=== PATIENT | male | born 1940 | race Caucasian/White ===

== ENCOUNTER 2017-06-02 18:00 | Emergency (ER) | payer MEDICARE, OTHER ==
[~2017-06-02] VITALS: Ht 182.9 cm; Wt 96.2 kg
[~2017-06-02 18:00] MED LIST: ALLEGRA ALLERG180 MG PO; ASPIRIN EC81 MG PO; B COMPLETE1 EACH PO; FERROUS SULFAT325 MG PO; FLOMAX0.4 MG PO; FLONASE ALLERG9.9 ML NS; HYDROCODON-ACE1 EA11 PO; LISINOPRIL-HCT1 EACH PO; MAGNESIUM400 M1 PO; METOPROLOL SUCC25 MG PO; MIRALAX17 GM PO; MULTIVITAMINS1 EAC7 PO; OXYCODONE HCL5 MG PO; SIMVASTATIN80 MG PO; VITAMIN D-32000 UNI1 PO; XARELTO10 MG PO
[2017-06-02] MEDS ORDERED: MIRTAZAPINE15 MG PO (18:21)
== END 2017-06-02 19:32 | disposition home or self-care (01) ==
LOC: ED 18:00
PROC: 0HQFXZZ Repair Right Hand Skin, External Approach (ICD-10-PCS; principal; 2017-06-02)
DX: S61.210A Laceration without foreign body of right index finger without damage to nail, initial encounter (principal); I10 Essential (primary) hypertension; E03.9 Hypothyroidism, unspecified; W26.0XXA Contact with knife, initial encounter
CPT/HCPCS: 12001; 90471; 90714; 99282

== ENCOUNTER 2018-08-19 06:25 | Day surgery (SDC) | payer MEDICARE, OTHER ==
[~2018-08-19] VITALS: Ht 182.9 cm; Wt 93.4 kg
[~2018-08-19 06:25] MED LIST changes: +MIRTAZAPINE15 MG PO
[2018-08-19] MEDS ORDERED: FLUOXETINE HCL20 MG PO (06:46)
[2018-08-19] MEDS ORDERED: LISINOPRIL-HCT1 EACH PO (06:47)
--- NOTE | 2018-08-19 09:00 | NUR ---
08/19/18 0900 Antonella Saldana 0850- PT ARRIVES TO PACU WITH EYES OPEN. PT REPORTS NO PAIN OR NAUSEA. PT ON 3L VIA NC. OXYGEN SAT HIGH 90'S TO 100% ON RA. RESP EVEN AND UNLABORED. 0852- OXYGEN TURNED OFF. OXYGEN SAT MID 90'S ON RA. RESP EVEN AND UNLABORED. PT PASSING FLATUS. 0857- PT CONTINUES TO PASS FLATUS. 0859- PT SITTING UP IN BED. REPORTS NO DIZZINESS, NAUSEA, OR PAIN. PT DRINKING CRANBERRY JUICE. TOLERATING WELL.
--- NOTE | 2018-08-19 09:17 | NUR ---
PT ALERT, ORIENTED AND SUPPORTED BY HIS . PREVIOUS SCOPES, SEEMED PREPARED BUT DID NOT HAVE A PAGER. DAQUAN BROUGHT ONE IN FOR PT'S . PT REQUESTED PRAYER, WILL FOLLOW NEEDED
--- NOTE | 2018-08-21 19:22 | OR ---
[facility] [address], [place] [address] Signed DATE OF OPERATION: 08/19/2018 SURGEON: Kunal Sandy MD PREOPERATIVE DIAGNOSIS: History of polyps including dysplastic cecal polyp (last colonoscopy in 2012). POSTOPERATIVE DIAGNOSES: 1. Sigmoid diverticulosis. 2. Polyps x3. PROCEDURES: 1. Total colonoscopy to cecum. 2. Snare polypectomy of the midtransverse colon polyp with mucosal lift technique and Endomark tattoo dye. 3. Snare polypectomy of polyp at 50 cm. 4. Cold morcellation polypectomy, sigmoid polyp. ANESTHESIA: Intravenous sedation with fentanyl 100 mcg and versed 4 mg. INDICATION: A 78-year-old white man who is a patient of Dr. Camarillo and underwent colonoscopy by me in the past. His last colonoscopy was in 2012. In the past, he has had several polyps excised. At one point, he had a dysplastic cecal polyp excised. He is symptom free currently. He is here for surveillance colonoscopy. FINDINGS: The prep was excellent. Complete colonoscopy was undertaken of the cecum. There were numerous diverticula of the sigmoid and left colon. There were three polyps in total, one in the transverse, another at 50 cm, another in the sigmoid, all excised. DESCRIPTION OF PROCEDURE: The patient was brought to the endoscopy suite and placed in lateral decubitus position given intravenous sedation to the point of slurred speech and nystagmus. Digital rectal examination was normal. An Olympus video colonoscope was passed in the rectum and manipulated throughout the colon ultimately intubating the cecum itself. The ileocecal valve and appendiceal orifice were normal. Scope was withdrawn from that point and examination undertaken in Electronically Signed By: KUNAL SANDY MD 08/21/18 192 PATIENT NAME: KAYLAN GAMBINO OPERATIVE REPORT DATE OF : 42 REPORT #: [id number] PHYSICIAN: KUNAL SANDY MD PCP: AVIVA CAMARILLO MD REPORT IS CONFIDENTIAL AND NOT TO BE RELEASED WITHOUT AUTHORIZATION [facility] [address], [place] [address] Signed the mid transverse colon was a somewhat flat and somewhat amorphous polyp. A mucosal lift technique was deemed most appropriate for excision. Using a sclerotherapy needle with spot Endomark tattoo dye, mucosal lift was undertaken using the hot snare polypectomy technique. The polyp was excised. The polyp was withdrawn through the channel of the scope and offloaded. The scope was then withdrawn and at 50 cm, there was noted another polyp, also somewhat sessile. It was excised with cold snare polypectomy technique without problem. It was extracted without problem as well. Further withdrawal of scope showed diverticula once again in the sigmoid and a small polyp, which was excised with cold morcellation technique. Further withdrawal showed no other abnormalities. Scope was removed and the patient was taken to recovery room in good condition. CONCLUDING DIAGNOSES: 1. Polyps x3. 2. Diverticulosis. PLAN: I would recommend repeat colonoscopy in 3 years given the polyps noted, sooner if he is having problems of course. He will return to the ongoing care of Dr. Camarillo. MD ALEX Gentile/RENATA /[id number] cc: Aviva Camarillo MD Copies: AVIVA CAMARILLO MD ~ Electronically Signed By: KUNAL SANDY MD 08/21/18 1922 PATIENT NAME: KAYLAN GAMBINO FRANK OPERATIVE REPORT DATE OF : 42 REPORT #: [id number] PHYSICIAN: KUNAL SANDY MD PCP: AVIVA CAMARILLO MD REPORT IS CONFIDENTIAL AND NOT TO BE RELEASED WITHOUT AUTHORIZATION
== END 2018-08-19 09:30 | disposition home or self-care (01) ==
LOC: OPS 06:25 → DS 06:25 → OPS 06:45 → DS 06:45 → OPS 09:30
PROVIDERS: Surgery
PROC: 0DBE8ZZ Excision of Large Intestine, Via Natural or Artificial Opening Endoscopic (ICD-10-PCS; 2018-08-19)
PROC: 0DBN8ZZ Excision of Sigmoid Colon, Via Natural or Artificial Opening Endoscopic (ICD-10-PCS; 2018-08-19)
PROC: 3E0H8GC Introduction of Other Therapeutic Substance into Lower GI, Via Natural or Artificial Opening Endoscopic (ICD-10-PCS; 2018-08-19)
PROC: 0DBL8ZZ Excision of Transverse Colon, Via Natural or Artificial Opening Endoscopic (ICD-10-PCS; principal; 2018-08-19 06:45)
DX: Z12.11 Encounter for screening for malignant neoplasm of colon (principal); D12.3 Benign neoplasm of transverse colon; D12.6 Benign neoplasm of colon, unspecified; K57.30 Diverticulosis of large intestine without perforation or abscess without bleeding; K63.5 Polyp of colon; I10 Essential (primary) hypertension; Z86.010 Personal history of colon polyps; Z88.1 Allergy status to other antibiotic agents; Z88.8 Allergy status to other drugs, medicaments and biological substances; Z98.890 Other specified postprocedural states
CPT/HCPCS: 88305; 99153; G0500; J0690; J2250; J3010; J7120

== ENCOUNTER 2022-03-22 20:01 | Emergency (ER) | payer MEDICARE, OTHER ==
[~2022-03-22] VITALS: Ht 182.9 cm; Wt 103.0 kg
[~2022-03-22 20:01] MED LIST changes: +FLUOXETINE HCL20 MG PO
== END 2022-03-22 20:55 | disposition home or self-care (01) ==
LOC: ED 20:01
DX: K40.90 Unilateral inguinal hernia, without obstruction or gangrene, not specified as recurrent (principal); I10 Essential (primary) hypertension; E78.5 Hyperlipidemia, unspecified; Z88.0 Allergy status to penicillin; Z88.8 Allergy status to other drugs, medicaments and biological substances; Z79.82 Long term (current) use of aspirin; Z79.899 Other long term (current) drug therapy
CPT/HCPCS: 99283

== ENCOUNTER 2023-09-29 08:49 | Emergency (ER) | payer MEDICARE, OTHER ==
[~2023-09-29] VITALS: Ht 182.9 cm; Wt 100.1 kg
[~2023-09-29 08:49] MED LIST changes: +ADVIL MIGRAINE200 MG PO; +MULTIPLE VITAM1 EAC1 PO; +PERCOCET 7.5-31 EACH PO; +TYLENOL EXTRA500 MG PO; +ZYRTEC10 M3 PO
--- OUTSIDE RECORDS SUMMARY | 2023-09-29 08:58 | XMS ---
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 E.Noah. VISIT COUNT (12 MO.) 3 Carlo Dawkins 1 [facility] 1 [facility] (Lianet Martini) TOTAL 5 NOTE: Visits indicate total known visits. ED/UCC VISIT TRACKING (12 MO.) 09/29/2023 08:49 JOSE Ariza TYPE: Emergency COMPLAINT: - COLD SYPMTOMS 09/22/2023 12:[address] 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 - Pain in right knee - Tinea cruris - Knee Swelling [facility]23 09[facility] TYPE: Emergency DIAGNOSES: - Poss infection in Knee 07/15/2023 04:53 Carlo Dawkins [facility] TYPE: Emergency DIAGNOSES: - Hemarthrosis, unspecified joint - r leg pain INPATIENT VISIT TRACKING (12 MO.) 07/15/2023 09:36 [facility] TYPE: Medical Surgical DIAGNOSES: - Pyogenic arthritis, unspecified - Poss infection in Knee [id number]
[2023-09-29] MEDS ORDERED: HYDROCORTISONE454 GM TOP (09:32)
[2023-09-29] MEDS ORDERED: NYSTATIN15 GM TOP (09:32)
[2023-09-29] MEDS ORDERED: FINASTERIDE5 MG PO (09:32)
[2023-09-29] MEDS ORDERED: KETOCONAZOLE15 GM TOP (09:32)
[2023-09-29] MEDS ORDERED: FLUCONAZOLE150 MG PO (09:32)
[2023-09-29] MEDS ORDERED: DOXYCYCLINE HYCLATE 100 MG CAP PO ONE (09:45)
[2023-09-29] MEDS ORDERED: DOXYCYCLINE HY100 MG PO (09:58)
[2023-09-29 10:05] VITALS: BP 138/72
== END 2023-09-29 10:10 | disposition home or self-care (01) ==
LOC: ED 08:49
DX: L03.211 Cellulitis of face (principal); L03.019 Cellulitis of unspecified finger; J32.9 Chronic sinusitis, unspecified; I10 Essential (primary) hypertension; E78.5 Hyperlipidemia, unspecified; Z88.8 Allergy status to other drugs, medicaments and biological substances; Z88.0 Allergy status to penicillin; Z88.1 Allergy status to other antibiotic agents; Z79.899 Other long term (current) drug therapy; Z79.82 Long term (current) use of aspirin; Z79.51 Long term (current) use of inhaled steroids

== ENCOUNTER 2024-11-16 07:48 | Emergency (ER) | payer MEDICARE ==
[~2024-11-16] VITALS: Ht 182.9 cm; Wt 109.7 kg
[~2024-11-16 07:48] MED LIST changes: +DOXYCYCLINE HY100 MG PO; +FINASTERIDE5 MG PO; +FLUCONAZOLE150 MG PO; +HYDROCORTISONE454 GM TOP; +KETOCONAZOLE15 GM TOP; +NYSTATIN15 GM TOP; +ONDANSETRON ODT8 MG PO
[2024-11-16 09:33] VITALS: BP 148/74
== END 2024-11-16 09:34 | disposition home or self-care (01) ==
LOC: ED 07:48
DX: K56.41 Fecal impaction (principal); I10 Essential (primary) hypertension; Z96.653 Presence of artificial knee joint, bilateral; Z88.0 Allergy status to penicillin; Z88.8 Allergy status to other drugs, medicaments and biological substances; Z79.899 Other long term (current) drug therapy; Z79.82 Long term (current) use of aspirin; Z98.890 Other specified postprocedural states
CPT/HCPCS: 99283

== ENCOUNTER 2024-11-19 08:02 | Emergency (ER) | payer OTHER ==
[~2024-11-19] VITALS: Ht 182.9 cm; Wt 105.0 kg
--- OUTSIDE RECORDS SUMMARY | 2024-11-19 08:08 | XMS ---
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 EMandeep VISIT COUNT (12 MO.) 3 [facility] TOTAL 3 NOTE: Visits indicate total known visits. ED/UCC VISIT TRACKING (12 MO.) 11/19/2024 08:02 JOSE Das [place] TYPE: Emergency COMPLAINT: - BLOOD IN URINE 11/16/2024 07:49 JOSE Das [place] TYPE: Emergency COMPLAINT: - CONSTIPATION DIAGNOSES: - Allergy status to other drugs, medicaments and biological substances - Allergy status to penicillin - Constipation, unspecified - Essential (primary) hypertension - Fecal impaction - exterminator termite (current) use of aspirin - Other exterminator termite (current) drug therapy - Other specified postprocedural states - Presence of artificial knee joint, bilateral 01/14/2024 19:27 JOSE Das [place] TYPE: Emergency COMPLAINT: - R ABD/BACK PAIN, VOMITING DIAGNOSES: - Allergy status to other drugs, medicaments and biological substances - Allergy status to penicillin - Essential (primary) hypertension - intermediate (current) use of aspirin - Meralgia paresthetica, right lower limb - Noninfective gastroenteritis and colitis, unspecified - Other penitentiary (current) drug therapy - Presence of artificial knee joint, bilateral - Unspecified abdominal pain INPATIENT VISIT TRACKING (12 MO.) 11/10/2024 09:50 [facility] TYPE: Orthopedic DIAGNOSES: - Infection and inflammatory reaction due to internal right knee prosthesis, subsequent encounter - Other postprocedural complications and disorders of genitourinary system - Other retention of urine [email or web address]
[2024-11-19] MEDS ORDERED: MIRTAZAPINE30 MG PO (08:20)
[2024-11-19 10:42] VITALS: BP 135/79
== END 2024-11-19 10:42 | disposition home or self-care (01) ==
LOC: ED 08:02
DX: T83.091A Other mechanical complication of indwelling urethral catheter, initial encounter (principal); I10 Essential (primary) hypertension; E78.5 Hyperlipidemia, unspecified; Z88.1 Allergy status to other antibiotic agents
CPT/HCPCS: 51798; 99283

== ENCOUNTER 2025-04-21 05:52 | Day surgery (SDC) | payer MEDICARE ==
[~2025-04-21] VITALS: Ht 177.8 cm; Wt 105.0 kg
[~2025-04-21 05:52] MED LIST changes: +ALLEGRA ALLERGY60 MG PO; +LACTATED RINGER'S 1,000 ML IV SCH; +MIRTAZAPINE30 MG PO
[2025-04-21 06:02] VITALS: BP 126/69
[2025-04-21] MEDS ORDERED: IBLOOD GLUCOSE TEST STRIP 1 EA TEST VI PRN (07:00)
[2025-04-21] MEDS ORDERED: LIDOCAINE HCL 1% 5 ML SDV INJ ONE (07:00)
[2025-04-21] MEDS ORDERED: CEFAZOLIN SODIUM 2 GM in SODIUM CHLORIDE 0.9% 100 ML IV SCH (07:00)
[2025-04-21] MEDS ORDERED: LIDOCAINE HCL 2% 5 ML SDV ONE (07:20)
--- NOTE | 2025-04-21 08:27 | NUR ---
04/21/[address] PRESENTS TO PATIENT'S BEDSIDE AND IS SPEAKING WITH HIM. HIS QUESTIONS ARE ANSWERED.
[2025-04-21 08:47] VITALS: BP 123/77
--- NOTE | 2025-04-21 11:41 | OR ---
[facility] [address] [place], [place] [address] Signed DATE OF OPERATION: 04/21/2025 SURGEON: Kunal Sandy MD PREOPERATIVE DIAGNOSIS: History of tubular adenomas x3, 2021. POSTOPERATIVE DIAGNOSES: 1. Multiple polyps including cecum and rectosigmoid. 2. Diverticulosis sigmoid. PROCEDURES: Total colonoscopy to cecum with cold snare polypectomy x2, cold morcellation polypectomy x3. ANESTHESIA: Intravenous sedation, propofol, Luzma Christine CRNA. INDICATION: This 84-year-old white man is patient of GOLDY Calixto and underwent colonoscopy by me in three years ago showing tubular adenomas x3. He has currently no symptoms of bleeding, diarrhea, or constipation and has no family history of colon cancer. He is here for surveillance colonoscopy. He understands risk of bleeding, infection, and perforation related to colonoscopy and wished to proceed. FINDINGS: The prep were adequate. Complete colonoscopy was undertaken of cecum with full intubation of the cecum. There was a less than 1 cm polyp in the cecum, which was excised with cold snare technique and three small polyps on the cecal fold at the junction of the cecum and ascending colon, which were excised with cold morcellation technique. Additionally, there was a polyp excised with snare technique at the rectosigmoid. There were diverticula in the sigmoid colon. DESCRIPTION OF PROCEDURE: The patient was brought to the endoscopy suite and placed in lateral decubitus position, given intravenous sedation to the point of slurred speech and nystagmus with full cardiopulmonary monitoring. Digital rectal examination was performed and found to be normal. An Olympus video colonoscope was passed in the rectum and manipulated throughout the Electronically Signed By: KUNAL SANDY MD 04/21/25 1141 PATIENT NAME: KAYLAN GAMBINO OPERATIVE REPORT DATE OF : 42 REPORT #: [id number] PHYSICIAN: KUNAL SANDY MD PCP: OLINDA PHILLIPS PAC REPORT IS CONFIDENTIAL AND NOT TO BE RELEASED WITHOUT AUTHORIZATION [facility] [address] [place], [place] [address] Signed colon. Irrigation was undertaken as required. Scope was ultimately advanced to the cecum. The ileocecal valve and appendiceal orifice were well identified. There was a small, slightly less than 1 cm, adenomatous appearing polyp, which was excised with cold snare technique and specimen passed in two pieces and labeled as cecal polyp #2. There was a series of small polyps on a cecal fold, which were excised with cold morcellation technique and a separate small polyp of the cecum excised with cold morcellation technique as well. The scope was withdrawn from that point and examination undertaken showed no sign of abnormality until the left colon where episodic diverticula were noted. At the rectosigmoid was a small sessile polyp excised with cold snare technique. This was passed for pathology as well. Retroflexed view of the rectum was normal. Scope was removed. The patient was taken to the recovery room in good condition. CONCLUDING DIAGNOSIS: Multiple polyps and diverticulosis. PLAN: Recommend repeat colonoscopy in 3 years. Recommend also a high-fiber diet based on diverticular changes. He will return to the ongoing care of GOLDY Calixto. MD ALEX Gentile/MODL /[id number] cc: Olinda Phillips PA-C Copies: ~ Electronically Signed By: KUNAL SANDY MD 04/21/25 1141 PATIENT NAME: KAYLAN GAMBINO OPERATIVE REPORT DATE OF : 42 REPORT #: [id number] PHYSICIAN: KUNAL SANDY MD PCP: OLINDA PHILLIPS PAC REPORT IS CONFIDENTIAL AND NOT TO BE RELEASED WITHOUT AUTHORIZATION
--- NOTE | 2025-04-23 12:48 | PATH ---
[facility] [address], [place] [address] Signed SPECIMEN(S): A CECUM POLYP SPECIMEN(S): B CECUM POLYP SPECIMEN(S): C CECUM POLYP SPECIMEN(S): D RECTAL POLYP SPECIMEN SOURCE: A. CECUM POLYP B. CECUM POLYP C. CECUM POLYP D. RECTAL POLYP CLINICAL HISTORY: History of colonic polyps. Postop-diverticulosis, multiple polyps. A-D) polyp FINAL PATHOLOGIC DIAGNOSIS: A. Cecum, polypectomy: - Tubular adenoma (multiple fragments). - Negative for high-grade dysplasia or malignancy. B. Cecum, polypectomy: - Tubular adenoma (multiple fragments). - Negative for high-grade dysplasia or malignancy. C. Cecum, polypectomy: - Tubular adenoma (multiple fragments). - Negative for high-grade dysplasia or malignancy. D. Rectum, polypectomy: - Tubular adenoma. - Negative for high-grade dysplasia or malignancy. DWS:smn MICROSCOPIC EXAMINATION: Histologic sections of all submitted blocks are examined by light microscopy. These findings, together with the gross examination, support the pathologic diagnosis. GROSS DESCRIPTION: A. The specimen, labeled and designated "Timothy, cecum polyp," is received in formalin and consists of five armstrong soft tissue fragments, ranging from 0.2-0.5 cm. Entirely submitted in (A1). B. The specimen, labeled and designated "Timothy, cecum polyp #2," is received in formalin and consists of three armstrong soft tissue fragments, ranging from 0.3-0.5 cm. Entirely submitted in (B1). PATIENT NAME: KAYLAN GAMBINO PATHOLOGY DATE OF : 42 REPORT #: [id number] PHYSICIAN: [facility] PCP: OLINDA PHILLIPS PAC REPORT IS CONFIDENTIAL AND NOT TO BE RELEASED WITHOUT AUTHORIZATION [facility] [address] [place], [place] [address] Signed C. The specimen, labeled and designated "Timothy, cecum polyp #3," is received in formalin and consists of eight armstrong soft tissue fragments, ranging from 0.2-0.3 cm. Entirely submitted in (C1). D. The specimen, labeled and designated "Timothy, rectal polyp," is received in formalin and consists of one armstrong soft tissue fragment, 0.4 cm. Entirely submitted in (D1). AB (under the direct supervision of a pathologist) The Gross Description was prepared using a voice recognition system. The report was reviewed for accuracy; however, sound-alike word errors, addition and/or deletions may occur. If there is any question about this report, please contact Client Services. PERFORMING LABORATORY: Technical component was performed by [facility], [address] [place] [id number] (CLIA# [id number]). Professional interpretation was performed by [facility], [address] [place] [id number] (CLIA#: [id number]). Diagnostician: Jonnathan Harding MD Pathologist Electronically Signed 04/23/2025 Copies: ~ PATIENT NAME: KAYLAN GAMBINO PATHOLOGY DATE OF : 42 REPORT #: [id number] PHYSICIAN: [facility] PCP: OLINDA PHILLIPS PAC REPORT IS CONFIDENTIAL AND NOT TO BE RELEASED WITHOUT AUTHORIZATION
== END 2025-04-21 08:53 | disposition home or self-care (01) ==
LOC: OPS 05:52 → DS 05:52 → OPS 07:30 → DS 07:30 → OPS 08:53 → DS 09:00 → OPS 09:00 → DS 10:00
PROVIDERS: ATTEND Surgery
PROC: 0DBP8ZZ Excision of Rectum, Via Natural or Artificial Opening Endoscopic (ICD-10-PCS; 2025-04-21)
PROC: 0DBH8ZZ Excision of Cecum, Via Natural or Artificial Opening Endoscopic (ICD-10-PCS; principal; 2025-04-21 07:30)
DX: Z12.11 Encounter for screening for malignant neoplasm of colon (principal); D12.0 Benign neoplasm of cecum; D12.8 Benign neoplasm of rectum; K57.30 Diverticulosis of large intestine without perforation or abscess without bleeding; E78.5 Hyperlipidemia, unspecified; I10 Essential (primary) hypertension; Z86.0101 Personal history of adenomatous and serrated colon polyps; Z79.899 Other long term (current) drug therapy; Z88.0 Allergy status to penicillin; Z88.8 Allergy status to other drugs, medicaments and biological substances
CPT/HCPCS: 00811; 88305; J0688; J2003; J2704; J7121

== ENCOUNTER 2025-04-29 00:12 | Observation (INO) | payer MEDICARE ==
[~2025-04-29] VITALS: Ht 177.8 cm; Wt 105.0 kg
[2025-04-29] VITALS (10 sets, daily range): BP systolic 110–123; BP diastolic 58–70
[~2025-04-29 00:12] MED LIST changes: -ALLEGRA ALLERGY60 MG PO; -LACTATED RINGER'S 1,000 ML IV SCH
[2025-04-29 00:45] LABS: BASOPHILS 0.4 % (0.2-1.2); EOSINOPHILS 2.5 % (0.8-7.0); LYMPHOCYTES 39.3 % (21.8-53.1); MCH 32.7 PG (25.7-32.2); MCHC 34.1 g/dL (32.3-36.5); MCV 95.9 fL (79.0-92.2); MONOCYTES 8.1 % (5.3-12.2); NEUTROPHILS 49.6 % (34.0-67.9); RBC 3.88 M/uL (4.63-6.08)
[2025-04-29] MEDS ORDERED: AMLODIPINE BESY10 MG PO (00:49)
[2025-04-29] MEDS ORDERED: LO-DOSE ASPIRIN81 MG PO (00:51)
[2025-04-29] MEDS ORDERED: MAGNESIUM400 M1 PO (00:52)
[2025-04-29] MEDS ORDERED: VITAMIN D310 MC1 PO (00:53)
[2025-04-29 00:57] LABS: INR 1.06 (0.80-1.30); PROTIME 13.4 Sec (11.2-14.2)
[2025-04-29 01:00] LABS: ALT (SGPT) 28.0 U/L (14-59); AST (SGOT) 18.0 U/L (15-37); GLOMERULAR FILTRATION RATE,EST 52.0 mL/min (>60); PROTEIN, TOTAL 6.3 g/dL (6.4-8.2); UREA NITROGEN 26.0 mg/dL (7-18)
[2025-04-29] MEDS ORDERED: SODIUM CHLORIDE 0.9% 500 ML IV SCH (01:30)
[2025-04-29 01:55] LABS: ABO O; RH POSITIVE
[2025-04-29 01:55] LABS: ABO O; ANTIBODY SCREEN NEGATIVE; RH POSITIVE
[2025-04-29 01:56] LABS: IS CROSSMATCH COMPATIBLE
[2025-04-29] MEDS ORDERED: LACTATED RINGER'S 1,000 ML IV SCH ×2 (02:15→13:15)
--- NOTE | 2025-04-29 02:15 | NUR ---
pt ARRIVED TO THE FLOOR VIA STRETCHER. REPORT RECEIVED FROM DIMAS CANO. pt TRANSFERED TO THE BED VIA STAND PIVOT. ADMISSION AND ASSESSMENT DONE. VSS. IV ASSESSED, WNL. pt NPO AT THIS TIME. pt DENIES ANY OTHER NEEDS AT THIS TIME. CALL LIGHT WITHIN REACH. pt EDUCATED ON RM AND USE OF CALL LIGHT. BED ALARM ON FOR SAFETY.
--- NOTE | 2025-04-29 03:51 | NUR ---
pt RESTING IN THE BED WITH EYES CLOSED. RR EVEN AND UNLABORED. CALL LIGHT WITHIN REACH. IVF INFUSING PER ORDER.
--- NOTE | 2025-04-29 04:25 | NUR ---
pt CALLED TO USE THE BSC. pt UP TO THE BS, 1PA. pt CLEANED UP AND NEW BRIEF ON pt. pt DENIES ANY OTHER NEEDS AT THIS TIME. CALL LIGHT WITHIN REACH.
[2025-04-29 05:29] LABS: BASOPHILS 0.3 % (0.2-1.2); EOSINOPHILS 1.9 % (0.8-7.0); LYMPHOCYTES 34.2 % (21.8-53.1); MCH 32.6 PG (25.7-32.2); MCHC 33.6 g/dL (32.3-36.5); MCV 97.0 fL (79.0-92.2); MONOCYTES 7.3 % (5.3-12.2); NEUTROPHILS 55.8 % (34.0-67.9); RBC 3.37 M/uL (4.63-6.08)
--- NOTE | 2025-04-29 07:20 | NUR ---
RECIEVED REPORT FROM RACHAEL ESPINOZA. PT LAYING IN BED REQUESTING THROAT LOZENGES. NOTIFIED. CALL LIGHT IN REACH.
--- NOTE | 2025-04-29 07:55 | NUR ---
RECEIVED REPORT FROM RACHAEL CHIRINOS. PATIENT LAYING IN BED, AT BEDSIDE. REQUESTS NO NEEDS AT THIS TIME, WHITEBOARD UPDATED, CALL LIGHT IN REACH.
--- NOTE | 2025-04-29 09:41 | NUR ---
VISITED DURING SPIRITUAL CARE ROUNDS. PT APPEARED TO BE SLEEPING. DID NOT DISTURB. PROVIDED PRAYER.
--- NOTE | 2025-04-29 10:23 | NUR ---
ALERT AND ORIENTED IN BED. , SILVINO, AT BEDSIDE. PATIENT LIVES WITH IN SINGLE STORY HOME WITH 3 STEPS TO GET INSIDE. THEY HAVE WALKER, CANE, SHOWER CHAIR AVAILABLE IF NEEDED. PATIENT DRIVES AT BASELINE. BOTH PATIENT AND STATE THEY ARE ABLE TO PAY FOR UTILITIES, FOOD AND MEDICATIONS WITHOUT DIFFICULTY. PATIENT PLANS TO DC TO HOME WHEN MEDICALLY READY. NO CM NEEDS NOTED.
--- NOTE | 2025-04-29 11:30 | NUR ---
PATIENT WASHED HIS FACE AND DID ORAL CARE THIS MORING. PATIENT REFUSED SHOWER.
--- NOTE | 2025-04-29 12:55 | NUR ---
DR. SANDY AT BEDSIDE, STATES TO SWITCH FROM NPO TO FULL LIQUID DIET AND MONITOR FOR INCREASE IN BLEEDING. KITCHEN CALLED AND FULL LIQUID DIET TRAY TO BE BROUGHT TO PATIENT ROOM. PT STATES NO OTHER NEEDS AT THIS TIME. FAMILY AT BEDSIDE, CALL LIGHT IN REACH.
[2025-04-29] MEDS ORDERED: FLUOXETINE HCL 20 MG CAP PO SCH (13:11)
[2025-04-29] MEDS ORDERED: AMLODIPINE BESYLATE 10 MG TAB PO SCH (13:11)
[2025-04-29] MEDS ORDERED: TAMSULOSIN HCL 0.4 MG CAP PO SCH (13:12)
--- NOTE | 2025-04-29 13:40 | NUR ---
PT STATES HE TOLERATED FULL LIQUID TRAY WELL. TAKES PO MEDICATION W/O DIFFICULTIES. STATES NO OTHER NEEDS, CALL LIGHT WITHIN REACH.
--- NOTE | 2025-04-29 14:10 | NUR ---
UR CLINICAL REVIEW: 2 MN FOR VERSALUS-PER LAUNDRY SUPERINTENDENT MEETS OBS FOR RECTAL BLEED WITH NEED FOR MONITORING [facility] OBS 04/29/25 @ 0014 ORDER MATCHES REG NO AUTH REQUIRED FOR OBS VISIT PER MEDICARE GUIDELINES DISCHARGE TO HOME WHEN STABLE 04/29/25
--- NOTE | 2025-04-29 15:42 | EKG ---
[facility] [address] [facility] [place] [address] Signed Normal sinus rhythm Left anterior fascicular block Abnormal ECG When compared with ECG of 28-MAR-2022 09:27, No significant change was found Confirmed by Jarod Landers MD () on 04/29/2025 3:42:10 PM Electronically Signed By: JAROD LANDERS MD 04/29/25 1542 PATIENT NAME: KAYLAN GAMBINO Electrocardiogram DATE OF : 42 PHYSICIAN: JAROD LANDERS MD REPORT #: [id number] REPORT IS CONFIDENTIAL AND NOT TO BE RELEASED WITHOUT AUTHORIZATION
--- NOTE | 2025-04-29 17:40 | NUR ---
PATIENT LAYING IN BED WATCHING TV. PATIENT REQUESTING A SANDWICH BOX PER ALLOWED REGULAR DIET. FAMILY AT BEDSIDE NO OTHER NEEDS AT THIS TIME. CALL LIGHT IN REACH.
--- NOTE | 2025-04-29 19:37 | NUR ---
REPORT RECEIVED FROM DAY SHIFT RN. PT LYING IN BED ALERT AND ORIENTED. FRESH WATER PROVIDED PER REQUEST. NO FURTHER NEEDS. WHITE BOARD UPDATED. CALL LIGHT IN REACH.
--- NOTE | 2025-04-29 21:15 | NUR ---
in to get VS, fresh water, urinal emptied, no further needs at this time
--- NOTE | 2025-04-29 21:34 | NUR ---
EVENING ASSESSMENT COMPLETE. PT DENIES PAIN OR NAUSEA. DENIES BOWEL MOVEMENT SINCE DYE COLORIST DYER. REPORTS FLATUS. ABD SOFT. BOWEL TONES ACTIVE. IVF INFUSING WNL. PT DENIES QUESTIONS OR CONCERNS. CALL LIGHT IN REACH.
[2025-04-30] VITALS (12 sets, daily range): BP systolic 115–150; BP diastolic 64–74
--- NOTE | 2025-04-30 00:33 | NUR ---
PT RESTING IN BED WITH EYES CLOSED. RESPIRATIONS EVEN. CALL LIGHT IN REACH.
--- NOTE | 2025-04-30 02:00 | NUR ---
IN ROOM AT APPROX 0100 FOR ALARMING IV PUMP. NEW BAG IVF HUNG. VS OBTAINED. PT REPORTS "PASSING A LOT OF GAS" AND REQUESTED THIS RN CHECK HIS ATTENDS. SMALL AMOUNT DRIED BLOOD NOTED. SBA TO BR WITH FWW TO VOID AND ATTEMPT BM/PASS GAS. PT HAD BRIEF SYNCOPAL EPISODE WITNESSED BY THIS RN. RAPID RESPONSE CALLED. PT REPORTED SLIGHT DIZZINESS AND LIGHTHEADEDNESS. ENGINEER DESIGN AND CONSTRUCTION RN AND DECATIZER IN ROOM TO ASSIST. VS OBTAINED. PT REPORTS DIZZINESS RESOLVED. STAFF ASSIST WITH ALEIDA CARE. SMALL AMOUNT CLOTTED VICKY RED BLOOD NOTED IN TOILET. 2PA BACK TO BED. GAIT STEAY. TELE PLACED. SR. HR 60'S. SpO2 87% UPON RETURN TO BED. PT REPORTS SLIGHT SOB. 2L/NC PLACED. SpO2 QUICKLY UP TO MID 90'S. LUNGS CLEAR THROUGHOUT. PT DENIES CHEST PAIN. DR. SANDY UPDATED. TELEPHONE ORDERS RECEIVED TO LEAVE TELE OVER NIGHT. UPDATED PT. PT DENIES FURTHER NEEDS. CALL LIGHT IN REACH. BED ALARM FOR SAFETY.
--- NOTE | 2025-04-30 03:19 | NUR ---
PT RESTING IN BED LYING ON LEFT SIDE. RESPIRATIONS EVEN. CALL LIGHT IN REACH.
[2025-04-30 05:23] LABS: BASOPHILS 0.3 % (0.2-1.2); EOSINOPHILS 2.2 % (0.8-7.0); LYMPHOCYTES 23.0 % (21.8-53.1); MCH 32.4 PG (25.7-32.2); MCHC 33.2 g/dL (32.3-36.5); MCV 97.5 fL (79.0-92.2); MONOCYTES 5.7 % (5.3-12.2); NEUTROPHILS 68.5 % (34.0-67.9); RBC 3.24 M/uL (4.63-6.08)
--- NOTE | 2025-04-30 06:01 | NUR ---
LAB IN FOR MORNING DRAW. VS AND I&O OBTAINED. OXYGEN WEANED TO OFF. SpO2 94% ON RA. PT DENIES SOB. DENIES DIZZINESS OR LIGHTHEADEDNESS. REPORTS HE IS RESTING WELL. DENIES NEEDS. BED ALARM FOR SAFETY. CALL LIGHT IN REACH.
--- NOTE | 2025-04-30 07:20 | NUR ---
RECEIVED REPORT FROM RACHAEL GREENE. PATIENT SITTING UP IN BED WATCHING TV. STATES NO NEEDS AT THIS TIME. WHITEBOARD UPDATED, CALL LIGHT IN REACH.
--- NOTE | 2025-04-30 09:31 | NUR ---
PATIENT IS IN BED AT THSI TIME, IS IN ROOM, FIRE CHIEF CHARTED VITALS AND I&O'S, GOT A WARM WASH CLOTH FOR PATIENT TO WASH FACE, AM CARE, GOT FRESH ICE WATER, CALL LIGHT WITH IN REACH AND NOTHING ELSE NEEDED AT THIS TIME.
--- NOTE | 2025-04-30 10:10 | NUR ---
DR SANDY AT BEDSIDE, UPDATE ON PLAN OF CARE. NO NEEDS AT THIS TIME, CALL LIGHT IN REACH.
[2025-04-30] MEDS ORDERED: MEN'S 50 PLUS1 EACH PO (10:18)
--- NOTE | 2025-04-30 10:18 | NUR ---
MED REC COMPLETE
--- NOTE | 2025-04-30 10:20 | NUR ---
UR CLINICAL REVIEW: BRANDT, MEETS OBSERVATION FOR LOWER GI BLEED POSITIVE BLOOD IN STOOLS POST POLYPECTOMY, TREND LABS, MONITOR FOR MORE BLOOD LOSS OBS 04/29/2025 @ 0119 ORDER MATCHES REG PLAN TO DC TO HOME WHEN MEDICALLY CLEAR 05/01/2025
--- NOTE | 2025-04-30 11:18 | NUR ---
INTO SEE PATIENT. PATIENT HOPES TO D/C THIS AFTERNOON. NO CM NEEDS.
--- NOTE | 2025-04-30 11:33 | NUR ---
VISITED DURING SPIRITUAL CARE ROUNDS. PT SUPPORTED BY IN ROOM. BOTH IN OVERALL GOOD SPIRITS, NO IMMEDIATE NEEDS. DIRECTORY CARRIER PROVIDED SUPPORTIVE PRESENCE, HOSPITALITY, PRAYER.
--- NOTE | 2025-04-30 14:20 | NUR ---
PATIENT WATCHING TV, AT BEDSIDE. NO NEEDS AT THIS TIME. PT REPORTS NO PAIN, CALL LIGHT IN REACH.
--- NOTE | 2025-04-30 15:25 | NUR ---
FRESH ICE WATER PROVIDED PER PT REQUEST. PT STATES NO FURTHER NEEDS AT THIS TIME. CALL LIGHT WITHIN REACH.
[2025-04-30] MEDS ORDERED: MIRALAX17 GM PO (16:00)
[2025-04-30] MEDS ORDERED: METAMUCIL FIBE3.4 GM PO (16:01)
--- NOTE | 2025-04-30 16:18 | NUR ---
THIS RN CALLS DR. SANDY TO UPDATE PT HAS HAD A BM WITH BLOOD PRESENT AND STATES HE IS ANXIOUS THAT HIS BLEEDING COULD BE STARTING OVER AGAIN. DR. SANDY STATES THAT PT IS OKAY FOR DC SOME BLEEDING IS EXPECTED HE IMPROVES. PT UPDATED.
--- NOTE | 2025-04-30 16:36 | NUR ---
PATIENT USED CALL LIGHT TO NOTIFY NURSES STATION ABOUT NEEDING HELP GETTING UP TO GO USE THE RESTROOM. EMMA MENESES ANSWERED THE CALL LIGHT AND HEPED AMBULATE HIM USING HIS WALKER OVER TO THE RESTROOM. PATIENTS STOOL HAD BOOD SO EMMA MENESES NOTIFIED HIS NURSES. EMMA MENESES CHANNGED HIS BRIEF AND AMBULATED HIM SAFELY BACK ONTO HIS BED. PATIENT LEFT WITH CALL LIGHT WITHIN REACH, NO FURTHER NEEDS.
--- NOTE | 2025-04-30 16:45 | NUR ---
PT DRESSES SELF IN OWN CLOTHES, VSS. PT LEAVING WITH ALL PERSONAL BELOONGINGS. DC PACKET AND EDUCATION GIVEN, PT VERBALIZES UNDERSTANDING AND STATES ALL QUESTIONS HAVE BEEN ANSWERED. PT AMBULATES INDEPENDENTLY TO WHEELCHAIR, WHEELED TO FRONT OF BUILDING BY NURSING PERSONEL.
--- NOTE | 2025-05-03 13:51 | HP ---
[facility] [address], [place] [address] Signed ADMISSION DATE: 04/29/2025 REASON FOR ADMISSION: Hematochezia. History of recent colonoscopy. HISTORY OF PRESENT ILLNESS: This 84-year-old white man presented to emergency room last night, was evaluated by Dr. Funk having had significant hematochezia. Quite notably, he underwent colonoscopy by me on April 21, where he underwent polypectomy x5. The patient takes only aspirin and no other more serious anticoagulants. Review of his operative report showed he had diverticulosis, as well as polyps as described. He underwent cold snare polypectomy x2 and cold morcellation polypectomy x3. He was directly admitted for further observation, though he had only a small amount of rectal bleeding at presentation to the ER itself. His hematocrit was noted to be 32. Since admission, he has had no further bleeding. He has been maintained n.p.o. status. His hematocrit at approximately midnight was 37, this morning 32.7. REVIEW OF SYSTEMS: He denies any abdominal pain. He has no shortness of breath. He is accompanied by his and daughter. PHYSICAL EXAMINATION: GENERAL: He looks well overall. CURRENT VITAL SIGNS: Show a temperature of 97.7, a pulse of 55, blood pressure 118/67. NECK: Trachea is midline. RESPIRATORY: He has no respiratory distress. ABDOMEN: Obese, but soft. EXTREMITIES: Show no clubbing, cyanosis, or edema. ASSESSMENT: The patient had bleeding related to his recent colonoscopy. I explained to him the phenomenon of scab/eschar separation within a few days of such procedures. He will be advanced to a diet of full liquids and probably continue with observation until tomorrow. If he has recurrent bleeding of any significance, consideration will be made for repeat colonoscopy and securing of the bleeding site with a hemoclip or other implement. I think that is quite unlikely, most bleeds of this type stop after a sentinel bleed. Electronically Signed By: KUNAL SANDY MD 05/03/25 1351 PATIENT NAME: KAYLAN GAMBINO HISTORY AND PHYSICAL DATE OF : 42 REPORT #: [id number] PHYSICIAN: KUNAL SANDY MD PCP: OLINDA PHILLIPS PAC REPORT IS CONFIDENTIAL AND NOT TO BE RELEASED WITHOUT AUTHORIZATION [address] [address] Signed Kunal Sandy MD JM/MODL /[id number] cc: Ortiz Funk MD Copies: ORTIZ FUNK MD ~ Electronically Signed By: KUNAL SANDY MD 05/03/25 1351 PATIENT NAME: KAYLAN GAMBINO HISTORY AND PHYSICAL DATE OF : 42 REPORT #: [id number] PHYSICIAN: KUNAL SANDY MD PCP: OLINDA PHILLIPS PAC REPORT IS CONFIDENTIAL AND NOT TO BE RELEASED WITHOUT AUTHORIZATION
== END 2025-04-30 16:45 | disposition home or self-care (01) ==
LOC: ED 00:12 → MS 00:14
PROVIDERS: Emergency Medicine; ADMIT Surgery; ATTEND Surgery
DX: K62.5 Hemorrhage of anus and rectum (principal); I10 Essential (primary) hypertension; E78.5 Hyperlipidemia, unspecified; Z86.0100 Personal history of colon polyps, unspecified; Z79.82 Long term (current) use of aspirin; Z79.899 Other long term (current) drug therapy; Z88.0 Allergy status to penicillin; Z88.8 Allergy status to other drugs, medicaments and biological substances
CPT/HCPCS: 36415; 80053; 85025; 85610; 85730; 86850; 86900; 86901; 86922; 93005; 93010; 99284; G0378; J7121

== ENCOUNTER 2025-05-24 16:21 | Emergency (ER) | payer MEDICARE ==
[~2025-05-24] VITALS: Ht 177.8 cm; Wt 104.5 kg
[~2025-05-24 16:21] MED LIST changes: +AMLODIPINE BESY10 MG PO; +LO-DOSE ASPIRIN81 MG PO; +MEN'S 50 PLUS1 EACH PO; +METAMUCIL FIBE3.4 GM PO; +VITAMIN D310 MC1 PO
--- OUTSIDE RECORDS SUMMARY | 2025-05-24 16:28 | XMS ---
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 EMandeep VISIT COUNT (12 MO.) 4 [facility] TOTAL 4 NOTE: Visits indicate total known visits. ED/UCC VISIT TRACKING (12 MO.) 05/24/2025 16:21 [facility] [place] TYPE: Emergency COMPLAINT: - WEAKNESS 04/29/2025 00:13 [facility] [place] TYPE: Emergency COMPLAINT: - URINE PROBLEM 11/19/2024 08:02 [facility] [place] TYPE: Emergency COMPLAINT: - BLOOD IN URINE DIAGNOSES: - Allergy status to other antibiotic agents - Essential (primary) hypertension - Hyperlipidemia, unspecified - Other mechanical complication of indwelling urethral catheter, initial encounter - Retention of urine, unspecified 11/16/2024 07:49 [facility] [place] TYPE: Emergency COMPLAINT: - CONSTIPATION DIAGNOSES: - Allergy status to other drugs, medicaments and biological substances - Allergy status to penicillin - Constipation, unspecified - Essential (primary) hypertension - Fecal impaction - 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 - Other penitentiary (current) drug therapy - Other specified postprocedural states - Presence of artificial knee joint, bilateral INPATIENT VISIT TRACKING (12 MO.) 04/29/2025 00:14 [facility] [place] TYPE: Observation COMPLAINT: - RECTAL BLEED RECENT POLYPECTOMY DIAGNOSES: - Allergy status to other drugs, medicaments and biological substances - Allergy status to penicillin - Essential (primary) hypertension - Hemorrhage of anus and rectum - Hyperlipidemia, unspecified - nursing home (current) use of aspirin - Other penitentiary (current) drug therapy - Personal history of colon polyps, unspecified - PERSONAL HISTORY OF COLON POLYPS, UNSPECIFIED 11/10/2024 09:[address] [facility] [place] TYPE: Orthopedic DIAGNOSES: - Infection and inflammatory reaction due to internal right knee prosthesis, subsequent encounter - Other postprocedural complications and disorders of genitourinary system - Other retention of urine [email or web address]
[2025-05-24 16:57] LABS: BASOPHILS 0.2 % (0.2-1.2); EOSINOPHILS 0 % (0.8-7.0); LYMPHOCYTES 10.7 % (21.8-53.1); MCH 33.8 PG (25.7-32.2); MCHC 33.9 g/dL (32.3-36.5); MCV 99.7 fL (79.0-92.2); MONOCYTES 7.3 % (5.3-12.2); NEUTROPHILS 81.4 % (34.0-67.9); RBC 3.49 M/uL (4.63-6.08)
[2025-05-24] MEDS ORDERED: ACETAMINOPHEN 500 MG TAB PO ONE (17:00)
[2025-05-24] MEDS ORDERED: SODIUM CHLORIDE 0.9% 1,000 ML IV ONE (17:00)
[2025-05-24 17:16] LABS: ALT (SGPT) 21.0 U/L (14-59); AST (SGOT) 18.0 U/L (15-37); GLOMERULAR FILTRATION RATE,EST 57.0 mL/min (>60); PROTEIN, TOTAL 7.1 g/dL (6.4-8.2); UREA NITROGEN 14.0 mg/dL (7-18)
[2025-05-24 17:20] LABS: LACTIC ACID, BLOOD 1.2 mmol/L (0.4-2.0)
[2025-05-24 17:46] LABS: INFLUENZA B NAA NEGATIVE (NEGATIVE); RESPIRATORY SYNCYTIAL VIR NAA NEGATIVE (NEGATIVE)
[2025-05-24 19:03] LABS: BLOOD/HGB, URINE NEGATIVE (Negative); KETONE, URINE TRACE (Negative); LEUK ESTERASE, URINE NEGATIVE (negative); NITRITE, URINE NEGATIVE (negative)
[2025-05-24] MEDS ORDERED: LEVOFLOXACIN750 MG PO (19:26)
[2025-05-24 19:34] VITALS: BP 123/70
== END 2025-05-24 19:48 | disposition home or self-care (01) ==
LOC: ED 16:21
PROVIDERS: Emergency Medicine
DX: J18.9 Pneumonia, unspecified organism (principal); I10 Essential (primary) hypertension; E78.5 Hyperlipidemia, unspecified; Z79.51 Long term (current) use of inhaled steroids; Z79.899 Other long term (current) drug therapy; Z88.0 Allergy status to penicillin; Z88.1 Allergy status to other antibiotic agents
CPT/HCPCS: 36415; 71045; 72193; 80053; 81003; 83605; 85025; 85651; 86140; 87040; 87502; 96365; 99284-25; A9270; J0696; J7030; Q9967; U0002